=== PATIENT | male | born 1980 | race Caucasian/White ===

== ENCOUNTER 2017-07-11 14:50 | Observation (INO) ==
--- NOTE | 2017-07-11 16:22 | Non-Invasive Vascular Report ---
"Venous Exam Indications: 729.5 Pain in limb. IMPRESSIONS 1. There is no evidence of significant Reflux. 2. No evidence of deep or superficial vein thrombosis involving the right lower extremity History: Risk factors: Current tobacco use. IV DRUG USER Right lower extremity venous duplex evaluation. Doppler flow study including spectral analysis, color and welch scale imaging. Location: Vascular laboratory. Patient status: Outpatient. Incidental findings: A conspicuous lymph is noted incidentally on the right. Tables: Venous flow and imaging: + +-------+ + |Location |Overall|Flow properties | + +-------+ + |Right common femoral |Patent |Normal phasicity; spontaneous; | | | |normal augmentation; compressible| + +-------+ + |Right saphenofemoral junction|Patent |Compressible | + +-------+ + |Right profunda femoral |Patent |Compressible | + +-------+ + |Right femoral |Patent |Normal phasicity; spontaneous; | | | |normal augmentation; compressible| + +-------+ + |Right greater saphenous |Patent |Normal phasicity; spontaneous; | | | |normal augmentation; compressible| + +-------+ + |Right popliteal |Patent |Normal phasicity; spontaneous; | | | |normal augmentation; compressible| + +-------+ + |Right posterior tibial |Patent |Compressible | + +-------+ + |Right peroneal |Patent |Compressible | + +-------+ + |Right gastrocnemius |Patent |Compressible | + +-------+ + |Right soleal |Patent |Compressible | + +-------+ + (Report amended ) Electronically signed by: Joshua Cardenas [id number]"
[2017-07-11 17:05] LABS: Basophils % 0.1 % (0.1-2.0); Eosinophils % 0.1 % (0.1-12.0); Hematocrit 37.3 % (42.0-52.0); Hemoglobin 12.5 g/dL (14.1-18.0); Lymphocytes # 1.3 K/mm3 (0.7-4.5); Lymphocytes % 7.8 K/mm3 (10-50); Mean Corpuscular HGB Conc 33.6 g/dL (31.8-35.4); Mean Corpuscular Hemoglobin 28.9 pg (27.0-31.2); Mean Corpuscular Volume 86.1 fl (80-94); Mean Platelet Volume 7.1 fl (7.4-10.4); Monocytes # 0.8 K/mm3 (0.1-1.0); Monocytes % 4.6 % (1.7-9.3); Neutrophils # 14.9 K/mm3 (1.8-7.8); Neutrophils % 87.4 % (37.0-80.0); Platelet Count 381 K/mm3 (142-424); Red Blood Count 4.33 M/mm3 (4.60-6.20); Red Cell Distribution Width 12.5 % (11.5-17.5)
[2017-07-11 17:13] LABS: Albumin Level 3.2 gm/dL (3.4-5.0); Anion Gap 9.9 mEq/L (5-15); Bilirubin,Total 0.4 mg/dL (0.2-1.0); Calcium 9.3 mg/dL (8.5-10.1); Potassium 3.9 mmoL/L (3.5-5.1)
[2017-07-11 17:14] LABS: Albumin/Globulin Ratio 0.7 (1.1-1.8); Globulin 4.8 gm/dl (1.3-3.2)
--- NOTE | 2017-07-11 17:25 | Emergency Department Note ---
ED Disposition Clinical Impression: Cellulitis of right lower extremity, Leukocytosis, IV drug abuse Disposition: Admitted As Inpatient Condition on Discharge: Fair Time of Disposition: 17:32 - Critical Care Critical Care Time: No Attestation: On 07/11/17, the high probability of a clinically significant, sudden or life threatening deterioration of the following system(s) required my full and direct attention, intervention and personal management. The time I documented below is in addition to time spent performing reported procedures but includes the following listed in this critical care notation. Medical Decision Making - Medical Records Medical records reviewed: Yes: I reviewed the patient's medical records. - [place] Inquiry Pt receiving controlled substance: No Vital Signs: 07/11/17 14:51 Temperature 98.6 F Temperature Source Oral Pulse Rate [Right Brachial] 87 Respiratory Rate 16 Blood Pressure [Right Arm] 117/66 Blood Pressure Mean [Right Arm] 83 Blood Pressure Source [Right Arm] Automatic Cuff Blood Pressure Position [Right Arm] Supine 02 Sat by Pulse Oximetry 97 Oxygen Delivery Method Room Air - Lab Data Lab results reviewed: Yes: I reviewed the patient's lab results. Lab Results 07/11/17 16:50: WBC 17.0 H, RBC 4.33 L, Hgb 12.5 L, Hct 37.3 L, MCV 86.1, MCH 28.9, MCHC 33.6, RDW 12.5, Plt Count 381, MPV 7.1 L, Neut % (Auto) 87.4 H, Lymph % (Auto) 7.8 L, [place] % (Auto) 4.6, Eos % (Auto) 0.1, Baso % (Auto) 0.1, Neut # (Auto) 14.9 H, Lymph # (Auto) 1.3, [place] # (Auto) 0.8, Eos # (Auto) 0.0, Baso # (Auto) 0.0, Total Counted 100, Neutrophils % (Manual) 92 H, Band Neutrophils % 1.0, Lymphocytes % (Manual) 5 L, Monocytes % (Manual) 2, Platelet Estimate Normal 07/11/17 16:50: Sodium 132 L, Potassium 3.9, Chloride 95 L, Carbon Dioxide 31, Anion Gap 9.9, BUN 14, Creatinine 0.89, Estimated Creat Clear 116, Estimated GFR 96, Est GFR ( Amer) 116, Glucose 103, Calcium 9.3, Total Bilirubin 0.4, AST 18, ALT 18, Alkaline Phosphatase 76, Total Protein 8.0, Albumin 3.2 L, Globulin 4.8 H, Albumin/Globulin Ratio 0.7 L 07/11/17 16:50: Lactic Acid 1.3 Result diagrams: 07/11/17 16:50 07/11/17 16:50 Orders (Tests/Meds): ED MEDICATIONS Generic Name Dose Route Start Last Admin Trade Name Freq PRN Reason Stop Dose Admin Miscellaneous 1 each 07/11/17 16:00 07/11/17 17:38 Vancomycin Consult Request * 08/10/17 15:59 1 each [facility] Administration Discontinued Medications Generic Name Dose Route Start Last Admin Trade Name Freq PRN Reason Stop Dose Admin Acetaminophen 325 mg 07/11/17 15:31 07/11/17 17:37 Acetaminophen 325mg Tab PO 07/11/17 15:32 325 mg ONCE ONE Administration Vancomycin HCl 1,500 mg/ 250 mls @ 125 mls/hr 07/11/17 17:16 07/11/17 17:38 Sodium Chloride IV 07/11/17 17:17 125 mls/hr ONCE ONE Administration Protocol Morphine Sulfate 1 mg 07/11/17 17:30 07/11/17 17:42 Morphine 2mg/Ml Syringe IV 07/11/17 17:31 1 mg ONCE ONE Administration Ondansetron HCl 4 mg 07/11/17 17:31 07/11/17 17:42 Zofran 4mg/2ml Vial IV 07/11/17 17:32 4 mg ONCE ONE Administration ORDERS Category Date Time Status Ankle XR - Right 2 Views [XR ankle RT 2V] Stat Exams 07/11/17 15:40 Taken Foot XR right 2 views [XR foot RT 2V] Stat Exams 07/11/17 15:41 Taken Tibia/fibula XR right 2 views [XR tibia fibula RT 2V] Exams 07/11/17 15:41 Taken Stat Blood Culture Stat Micro 07/11/17 15:33 Received - Radiology Data #1 Image(s): Tib/Fib (right), Ankle (right), Foot/Toes (right) Image Reviewed: Yes I reviewed the patient's radiology results, Yes I reviewed the patient's radiology image, Yes I have reviewed radiologist's interpretation Preliminary Findings: Normal/NAD - US Data US Images: Lower Extremity (right ) ED US Reviewed: Yes: I have reviewed the patient's US results Preliminary Findings: Normal/NAD Findings Narrative: no DVT - Physician Consults Physician Consulted: Dr Bean Time: 17:00 Reason -: Admission, Pt condition Comment/Response: Advised of patient's presentation and findings, agreeable with admission for IV antibiotics. - Reevaluation(s) Time: 18:12 Reevaluation #1: medically stable, in mild distress only. General Adult HPI - General Chief complaint: PAIN Stated complaint: right ankly swollen Time Seen by Provider: 07/11/17 15:45 Mode of Arrival: EMS Source of Information: Patient Limitations: No Limitations Description of Symptoms (Recalled from ER Triage Doc. by RN): pain and swelling to right ankle and up calf - History of Present Illness HPI narrative: Patient is a 37-year-old male brought to the emergency room by EMS with right leg redness, pain and swelling for the past 1 week, after using IV heroine. Patient has been also advising that he had subjective fever over the past 2-3 days, at home. He has been taking Tylenol for pain which does no longer control the pain. MD complaint: Swelling of the right lower extremity Onset (ago): week(s) (1) Location: right, lower extremity Radiation: non-radiation Severity: severe Severity scale (1-10): 8 Quality: burning, stabbing Consistency: constant Relieving factors: none Exacerbating factors: movement Associated symptoms: malaise Treatments prior to arrival: other (Tylenol) - Related Data Home Medications Medication Instructions Recorded Confirmed No Known Home Medications [No 07/11/17 07/11/17 Known Home Medications] Allergies Allergy/AdvReac Type Severity Reaction Status Date / Time No Known Allergies Allergy Verified 07/11/17 15:04 [facility] History I have reviewed the patient's past medical history: Yes Medical History: Denies:: Cancer, Diabetes Mellitus Type 1, Diabetes Mellitus Type 2, MRSA Amputation: No Fractures: No - Social History Educational Level: Attended High School Smoking Status: Current every day smoker Tobacco Type: cigarettes Alcohol Intake: never Substance Use Type: methamphetamine Last Used Substance: days (ago) - Psychiatric History Expresses thoughts of harming self/others: None Suicide Plan Description: No Plan ROS Obtained: Yes All systems reviewed & no additional complaints, Yes Systems reviewed as appropriate & no additional complaints - Constitutional Constitutional: Reports body ache, Reports chills, Reports fatigue, Reports fever(s) - Musculoskeletal Musculoskeletal: Reports system reviewed and no additional complaints, except as docu, Reports as per HPI, Reports joint pain (rigth lower extremity) - Integumentary/Breasts Skin/Breast: Reports system reviewed and no additional complaints, except as docu, Reports as per HPI, Reports rash, Reports skin swelling Physical Exam - General General appearance: alert, in distress (moderate) - Head Head exam: atraumatic, normocephalic, normal inspection - ENT ENT exam: Present: other (Poor dentition, multiple cavities) - Neck Neck exam: Present: normal inspection, full ROM, trachea midline. Absent: meningismus, lymphadenopathy - Chest Chest inspection: Present: normal inspection, symmetric chest wall rise. Absent : tenderness - Respiratory Respiratory exam: Present: normal lung sounds bilaterally. Absent: respiratory distress - Cardiovascular Cardiovascular exam: Present: normal rhythm, tachycardia. Absent: JVD - Abdominal Exam Abdominal exam: Present: soft, normal bowel sounds. Absent: distention, tenderness, guarding - Extremities Exam Extremities exam: Absent: calf tenderness - Expanded Lower Extremity Exam Right Lower leg exam: Present: tenderness, swelling Ankle exam: Present: tenderness, swelling, erythema Foot/toe exam: Present: tenderness, swelling, other (erythema) - Back Exam Back exam: Present: normal inspection. Absent: tenderness - Neurological Exam Neurological exam: Present: alert, oriented X3 - Psychiatric Psychiatric exam: Present: normal affect, normal mood - Skin Skin exam: Present: warm, dry, intact, normal color - Lymphatic Lymphatic Findings: no adenopathy
[2017-07-11 17:47] LABS: Lymphocytes % 5 % (10-50); Monocytes % 2 % (2-9); Neutrophils % 92 % (42-76); Total Cells Counted 100
--- NOTE | 2017-07-11 19:43 | Progress Note ---
Internal Medicine - PN: Subj *Date: 07/11/17 *Time: 19:39 Interval history: This 37-year-old white male was admitted from the emergency room with cellulitis of the right foot and ankle. Though the ER report states that the patient is using IV heroin he denies this. He states he has been shooting IV methamphetamine. Apart from marijuana he denies other drug use. The swelling tenderness and redness of the foot and ankle started about 4 days ago. He has had some drainage from the foot and ankle. He has been hospitalized previously for broken jaw. He denies other surgeries. There are no known allergies. He does smoke. Exam Vital signs and Labs for Last 24 Hours: Temp Pulse Resp BP Pulse Ox 98.8 F 85 18 129/64 98 07/11/17 19:10 07/11/17 19:10 07/11/17 19:10 07/11/17 19:10 07/11/17 19:10 I & O for Last 24 hours: Intake & Output 07/09/17 07/10/17 07/11/17 07/12/17 11:59 11:59 11:59 11:59 Weight 154 lb 8 oz - Constitutional no acute distress Comments: Complains of pain in the foot and ankle. - *Routine HEENT Exam Eye: Present: PERRL. Absent: conjunctival icterus ENT: Present: mucous membranes moist Comments: His dentition is terrible with caries and missing teeth. - *Routine Neck Exam Absent: lymphadenopathy - *Routine Respiratory Exam Comments: Bilateral rhonchi and some wheezes. - *Routine Cardiovascular Exam Present: RRR - *Routine Abdominal Exam Present: soft. Absent: tenderness - *Routine Extremities Exam Comments: The left foot appears normal. The right foot and ankle are significantly swollen tense and tender. There are excoriations of the right lateral malleolus in the posterior ankle. I do not see active drainage at the present time. I took the time to wrap the right foot and ankle using Kerlix and then Kang wrap. - *Routine Neurological Exam Present: alert, oriented X3 No focal deficit Assessment and Plan (1) Dental caries Current visit: Yes Status: Chronic Category: Medical Code(s): K02.9 - Dental caries, unspecified (2) Cellulitis of right lower extremity Current visit: Yes Status: Acute Category: Medical Code(s): L03.115 - Cellulitis of right lower limb (3) IV drug abuse Current visit: Yes Status: Acute Category: Social Hx Code(s): F19.10 - Other psychoactive substance abuse, uncomplicated (4) Leukocytosis Current visit: Yes Status: Acute Category: Medical Code(s): D72.829 - Elevated white blood cell count, unspecified - Assessment and plan all Dx Assessment and Plan for all problems:: IV antibiotics and pain relief.
--- NOTE | 2017-07-12 07:36 | Pharmacy Consult Notes ---
[facility] Pharmacy VTE Monitoring - Patient Demographics Admission date: 07/11/17 Report Date: 07/12/17 Time: 07:35 Allergies/Adverse Reactions: Patient Allergies No Known Allergies Allergy (Verified 07/11/17 15:04) Height: 1.78 m Weight: 70.08 kg Patient Problems: Current Active Problems Cellulitis of right lower extremity (Acute) Leukocytosis (Acute) IV drug abuse (Acute) Dental caries (Chronic) - VTE Risk Labs: VTE Related Lab Results Hgb 12.5 g/dL (14.1-18.0) L 07/11/17 16:50 Hct 37.3 % (42.0-52.0) L 07/11/17 16:50 Plt Count 381 K/mm3 (142-424) 07/11/17 16:50 BUN 14 mg/dL (7-18) 07/11/17 16:50 Creatinine 0.89 mg/dL (0.70-1.30) 07/11/17 16:50 Estimated Creat Clear 116 mL/min (0-300) 07/11/17 16:50 Was VTE Risk Assessment Performed: Yes VTE Score: 0 VTE Risk Level: Very Low Risk Clinical Trial Participant: No - Prophylaxis VTE Prophylaxis Ordered?: Yes Types of VTE Prophylaxis: TEDS Knee High
--- NOTE | 2017-07-12 08:34 | History & Physical Report ---
*Admission Date: 07/11/17 *Chief complaint: right lower extremity pain and redness *History of present illness: Mr. Hernandez is a 37-year-old white male was admitted from the emergency room with cellulitis of the right foot and ankle. Though the ER report states that the patient is using IV heroin he denies this. He states he has been shooting IV methamphetamine. Apart from marijuana he denies other drug use. The swelling tenderness and redness of the foot and ankle started about 4 days ago. He has had some drainage from the foot and ankle. He has been hospitalized previously for a broken jaw and did have a hx of a collapsed left lung. He has hepatitis C and currently smokes approximately 2 packs of cigarettes a day. 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 [facility] History Medical History: Denies:: Cancer, Diabetes Mellitus Type 1, Diabetes Mellitus Type 2, MRSA Comment: Hep C, Bipolar, DDD, Bilateral hip bursitis, Herniated discs in the lumbar spine Amputation: No Fractures: No Comment: Jaw, Collapsed left lung - *Social History Educational Level: Attended Grade School Smoking Status: Current every day smoker Tobacco Type: cigarettes # Packs/Day (cigarettes): 2 Alcohol Intake: never Substance Use Type: IV drugs, methamphetamine Last Used Substance: days (ago) Occupational Status: unemployed Housing: house Household Members: significant other - Psychiatric History Expresses thoughts of harming self/others: None Suicide Plan Description: No Plan *Family Hx:: Heart Attack, Hyperlipidemia, Hypertension, Stroke Review of Systems - Constitutional Reports chills, Reports fever(s), Reports weakness - Eyes Denies blurry vision, Denies double vision - ENT Reports nasal congestion, Denies sore throat - *Cardiovascular Denies chest pain, Denies irregular heart rhythm - *Respiratory Denies cough, Denies shortness of breath - *Gastrointestinal Denies abdominal pain, Denies loose stools, Denies nausea, Denies vomiting - *Genitourinary Denies difficulty urinating, Denies painful urination - *Musculoskeletal Reports joint pain (right ankle) - *Neurologic Reports dizziness, Denies headache(s) Meds Home Medications Medication Instructions Recorded Confirmed Type No Known Home Medications [No 07/11/17 07/11/17 History Known Home Medications] Allergies Allergy/AdvReac Type Severity Reaction Status Date / Time No Known Allergies Allergy Verified 07/11/17 15:04 Exam Vital signs and Labs for Last 24 Hours: Temp Pulse Resp BP Pulse Ox 97.9 F 69 18 113/76 98 07/12/17 04:00 07/12/17 04:00 07/12/17 04:00 07/12/17 04:00 07/12/17 04:00 Lab Results 07/11/17 16:50: WBC 17.0 H, RBC 4.33 L, Hgb 12.5 L, Hct 37.3 L, MCV 86.1, MCH 28.9, MCHC 33.6, RDW 12.5, Plt Count 381, MPV 7.1 L, Neut % (Auto) 87.4 H, Lymph % (Auto) 7.8 L, [place] % (Auto) 4.6, Eos % (Auto) 0.1, Baso % (Auto) 0.1, Neut # (Auto) 14.9 H, Lymph # (Auto) 1.3, [place] # (Auto) 0.8, Eos # (Auto) 0.0, Baso # (Auto) 0.0, Total Counted 100, Neutrophils % (Manual) 92 H, Band Neutrophils % 1.0, Lymphocytes % (Manual) 5 L, Monocytes % (Manual) 2, Platelet Estimate Normal 07/11/17 16:50: Sodium 132 L, Potassium 3.9, Chloride 95 L, Carbon Dioxide 31, Anion Gap 9.9, BUN 14, Creatinine 0.89, Estimated Creat Clear 116, Estimated GFR 96, Est GFR ( Amer) 116, Glucose 103, Calcium 9.3, Total Bilirubin 0.4, AST 18, ALT 18, Alkaline Phosphatase 76, Total Protein 8.0, Albumin 3.2 L, Globulin 4.8 H, Albumin/Globulin Ratio 0.7 L 07/11/17 16:50: Lactic Acid 1.3 Microbiology Results 07/11/17 15:33 Blood Blood Culture - Pending 07/11/17 16:50 Blood Blood Culture - Pending I & O for Last 24 hours: Intake & Output 07/09/17 07/10/17 07/11/17 07/12/17 11:59 11:59 11:59 11:59 Intake Total 1327 / 1327 Output Total 2049 Balance -723 / -723 Weight 154 lb 8 oz - Constitutional no acute distress - *Routine HEENT Exam Head: Present: normocephalic, atraumatic Eye: Present: EOMI, PERRL ENT: Present: mucous membranes moist - *Routine Neck Exam Present: supple, full ROM - *Routine Respiratory Exam Present: CTA bilaterally - *Routine Cardiovascular Exam Present: RRR - *Routine Abdominal Exam Present: soft, normoactive bowel sounds. Absent: tenderness - *Routine Extremities Exam Present: edema (RLE) - *Routine Skin Exam Present: erythema (RLE from the mid calf down to the foot, there is still drainage just above the heel, very ttp, hot to touch) - *Routine Neurological Exam Present: alert, oriented X3 H&P: Result - Impressions Ankle xray - Soft tissue swelling otherwise negative X-ray foot - no fx Tib/fib x-ray - Negative right tib-fib Right LE doppler - 1. There is no evidence of significant Reflux. 2. No evidence of deep or superficial vein thrombosis involving the right lower extremity Assessment and Plan (1) Cellulitis of right lower extremity Current visit: Yes Status: Acute Category: Medical Code(s): L03.115 - Cellulitis of right lower limb (2) IV drug abuse Current visit: Yes Status: Acute Category: Social Hx Code(s): F19.10 - Other psychoactive substance abuse, uncomplicated (3) Leukocytosis Current visit: Yes Status: Acute Category: Medical Code(s): D72.829 - Elevated white blood cell count, unspecified (4) Dental caries Current visit: Yes Status: Chronic Category: Medical Code(s): K02.9 - Dental caries, unspecified (5) Hepatitis C Current visit: Yes Status: Acute Category: Medical Code(s): B19.20 - Unspecified viral hepatitis C without hepatic coma (6) Bipolar disorder Current visit: Yes Status: Acute Category: Medical Code(s): F31.9 - Bipolar disorder, unspecified - Assessment and plan all Dx Assessment and Plan for all problems:: Will continue IV abx and pain control. Will await blood cultures. Will get labs today.
--- NOTE | 2017-07-12 08:44 | Pharmacy Consult Notes ---
- Pharmacy Consult Date: 07/12/17 Time: 08:43 Referring provider: DR. RIVERA Reason for Consult:: VANCOMYCIN DOSING Allergies and ADEs:: Allergies Allergy/AdvReac Type Severity Reaction Status Date / Time No Known Allergies Allergy Verified 07/11/17 15:04 Home Medications:: Home Medications Medication Instructions Recorded Confirmed Type No Known Home Medications [No 07/11/17 07/11/17 History Known Home Medications] Height: 1.78 m Weight: 70.08 kg Laboratory Results:: NONE Medical History: Denies:: Cancer, Diabetes Mellitus Type 1, Diabetes Mellitus Type 2, MRSA Assessment and Plan (1) Dental caries Current visit: Yes Status: Chronic Category: Medical Code(s): K02.9 - Dental caries, unspecified (2) Cellulitis of right lower extremity Current visit: Yes Status: Acute Category: Medical Code(s): L03.115 - Cellulitis of right lower limb (3) IV drug abuse Current visit: Yes Status: Acute Category: Social Hx Code(s): F19.10 - Other psychoactive substance abuse, uncomplicated (4) Leukocytosis Current visit: Yes Status: Acute Category: Medical Code(s): D72.829 - Elevated white blood cell count, unspecified - Assessment and plan all Dx Assessment and Plan for all problems:: BASED ON PATIENT'S FACTORS, RECOMMEND CONTINUING WITH VANCOMYCIN 1500 MG Q12H AT THIS TIME. PHARMACY WILL FOLLOW DAILY AND ADJUST APPROPRIATE. MARK FLOREZ, PHARMD
[2017-07-12 09:03] LABS: Basophils % 0.2 % (0.1-2.0); Eosinophils # 0.2 K/mm3 (0.0-0.4); Hematocrit 35.1 % (42.0-52.0); Hemoglobin 11.5 g/dL (14.1-18.0); Lymphocytes # 1.4 K/mm3 (0.7-4.5); Lymphocytes % 13.5 K/mm3 (10-50); Mean Corpuscular HGB Conc 32.8 g/dL (31.8-35.4); Mean Corpuscular Hemoglobin 28.7 pg (27.0-31.2); Mean Corpuscular Volume 87.6 fl (80-94); Mean Platelet Volume 7.4 fl (7.4-10.4); Monocytes # 0.6 K/mm3 (0.1-1.0); Monocytes % 5.4 % (1.7-9.3); Neutrophils # 8.1 K/mm3 (1.8-7.8); Platelet Count 276 K/mm3 (142-424); Red Blood Count 4.01 M/mm3 (4.60-6.20); Red Cell Distribution Width 12.3 % (11.5-17.5); White Blood Count 10.2 K/mm3 (4.8-10.8)
[2017-07-12 09:56] LABS: Anion Gap 10.4 mEq/L (5-15); Potassium 3.4 mmoL/L (3.5-5.1)
--- NOTE | 2017-07-13 14:23 | Discharge Summary ---
General - General Admission date: 07/11/17 Discharge date: 07/12/17 HPI HPI: Mr. Hernandez is a 37-year-old white male was admitted from the emergency room with cellulitis of the right foot and ankle. Though the ER report states that the patient is using IV heroin he denies this. He states he has been shooting IV methamphetamine. Apart from marijuana he denies other drug use. The swelling tenderness and redness of the foot and ankle started about 4 days ago. He has had some drainage from the foot and ankle. He has been hospitalized previously for a broken jaw and did have a hx of a collapsed left lung. He has hepatitis C and currently smokes approximately 2 packs of cigarettes a day. 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 Hospital Course Hospital Course: He had x-rays showing soft tissue swelling. There was no evidence of a DVT on doppler. The patient was admitted and started on IV vancomycin and clindamycin. He was also started on pain medication. The patient was unhappy about having and IV and about having blood drawn. He wanted to leave the floor to smoke. He was informed [facility] was a nonsmoking facility and was offered a nicotine patch. He refused. He signed a paper to leave the floor and did return. He then requested a paper to sign out AMA so he could go check on his girlfriend. He stated he wanted to find her and sign them both in to another facility. He signed to paperwork and left AMA. Objective Vital signs: Temp Pulse Resp BP Pulse Ox 97.7 F 89 18 104/55 90 L 07/12/17 16:00 07/12/17 16:00 07/12/17 16:00 07/12/17 16:07/12/17 16:00 Narrative: - Constitutional no acute distress - *Routine HEENT Exam Head: Present: normocephalic, atraumatic Eye: Present: EOMI, PERRL ENT: Present: mucous membranes moist - *Routine Neck Exam Present: supple, full ROM - *Routine Respiratory Exam Present: CTA bilaterally - *Routine Cardiovascular Exam Present: RRR - *Routine Abdominal Exam Present: soft, normoactive bowel sounds. Absent: tenderness - *Routine Extremities Exam Present: edema (RLE) - *Routine Skin Exam Present: erythema (RLE from the mid calf down to the foot, there is still drainage just above the heel, very ttp, hot to touch) - *Routine Neurological Exam Present: alert, oriented X3 DS: Diagnosis - Discharge Diagnosis (1) Cellulitis of right lower extremity Status: Acute (2) IV drug abuse Status: Acute (3) Leukocytosis Status: Acute (4) Dental caries Status: Chronic (5) Hepatitis C Status: Acute (6) Bipolar disorder Status: Acute Discharge Plan - Patient Discharge Instructions - Follow up Plan Follow up with: Cherelle Bean MD [Primary Care Provider] - Disposition: Left Against Medical Advice Home Medications: Home Medications Medication Instructions Recorded Confirmed Type No Known Home Medications [No 07/11/17 07/11/17 History Known Home Medications] Prescriptions/Medication Reconciliation: No Action No Known Home Medications [No Known Home Medications]
== END 2017-07-12 17:55 | disposition left against medical advice (07) ==
LOC: 2ND 14:50 → ER 14:50 → 2ND 17:42 → OBSVTOIN 17:46 → INTOOBSV 17:46 → 2ND 18:48
PROVIDERS: ADMIT Family Medicine; ATTEND Family Medicine

== ENCOUNTER 2017-07-15 17:35 | Observation (INO) ==
[2017-07-15 18:27] LABS: Basophils # 0.1 K/mm3 (0-0.2); Basophils % 0.7 % (0.1-2.0); Eosinophils # 0.2 K/mm3 (0.0-0.4); Eosinophils % 1.5 % (0.1-12.0); Hematocrit 36.9 % (42.0-52.0); Hemoglobin 12.3 g/dL (14.1-18.0); Lymphocytes # 2.1 K/mm3 (0.7-4.5); Lymphocytes % 21.4 K/mm3 (10-50); Mean Corpuscular HGB Conc 33.4 g/dL (31.8-35.4); Mean Corpuscular Hemoglobin 28.8 pg (27.0-31.2); Mean Corpuscular Volume 86.4 fl (80-94); Mean Platelet Volume 6.7 fl (7.4-10.4); Monocytes # 0.5 K/mm3 (0.1-1.0); Monocytes % 4.9 % (1.7-9.3); Neutrophils # 6.9 K/mm3 (1.8-7.8); Neutrophils % 71.5 % (37.0-80.0); Platelet Count 609 K/mm3 (142-424); Red Blood Count 4.28 M/mm3 (4.60-6.20); Red Cell Distribution Width 12.2 % (11.5-17.5); White Blood Count 9.6 K/mm3 (4.8-10.8)
[2017-07-15 18:35] LABS: Albumin Level 3.5 gm/dL (3.4-5.0); Albumin/Globulin Ratio 0.7 (1.1-1.8); Anion Gap 13.3 mEq/L (5-15); Bilirubin,Total 0.2 mg/dL (0.2-1.0); Calcium 9.7 mg/dL (8.5-10.1); Globulin 4.9 gm/dl (1.3-3.2); Potassium 3.3 mmoL/L (3.5-5.1); Total Protein,Serum 8.4 gm/dL (6.4-8.2)
--- NOTE | 2017-07-15 19:14 | Emergency Department Note ---
ED Disposition Clinical Impression: Abscess of right leg, Cellulitis of right lower extremity, IV drug abuse Disposition: Still a Patient Condition on Discharge: Serious Time of Disposition: 19:11 - Critical Care Critical Care Time: No Attestation: On 07/15/17, the high probability of a clinically significant, sudden or life threatening deterioration of the following system(s) required my full and direct attention, intervention and personal management. The time I documented below is in addition to time spent performing reported procedures but includes the following listed in this critical care notation. Medical Decision Making - Medical Records Medical records reviewed: Yes: I reviewed the patient's medical records. - [place] Inquiry Pt receiving controlled substance: No Vital Signs: 07/15/17 17:51 Temperature 98.1 F Temperature Source Temporal Artery Scan Pulse Rate [Right Brachial] 118 H Respiratory Rate 18 Blood Pressure [Right Arm] 158/100 Blood Pressure Mean [Right Arm] 119 Blood Pressure Source [Right Arm] Automatic Cuff Blood Pressure Position [Right Arm] Sitting 02 Sat by Pulse Oximetry 96 Oxygen Delivery Method Room Air - Lab Data Lab results reviewed: Yes: I reviewed the patient's lab results. Lab Results 07/15/17 18:05: WBC 9.6, RBC 4.28 L, Hgb 12.3 L, Hct 36.9 L, MCV 86.4, MCH 28.8 , MCHC 33.4, RDW 12.2, Plt Count 609 H D, MPV 6.7 L, Neut % (Auto) 71.5, Lymph % (Auto) 21.4, Ramsey % (Auto) 4.9, Eos % (Auto) 1.5, Baso % (Auto) 0.7, Neut # ( Auto) 6.9, Lymph # (Auto) 2.1, Ramsey # (Auto) 0.5, Eos # (Auto) 0.2, Baso # (Auto ) 0.1 07/15/17 18:05: Sodium 139, Potassium 3.3 L, Chloride 97 L, Carbon Dioxide 32, Anion Gap 13.3, BUN 13, Creatinine 1.07, Estimated Creat Clear 78, Estimated GFR 77, Est GFR ( Amer) 94, Glucose 93, Calcium 9.7, Total Bilirubin 0.2 , AST 24, ALT 25, Alkaline Phosphatase 79, Total Protein 8.4 H, Albumin 3.5, Globulin 4.9 H, Albumin/Globulin Ratio 0.7 L 07/15/17 18:05: Lactic Acid 1.4 Result diagrams: 07/15/17 18:05 07/15/17 18:05 Orders (Tests/Meds): ED MEDICATIONS Generic Name Dose Route Start Last Admin Trade Name Freq PRN Reason Stop Dose Admin Miscellaneous 1 each 07/15/17 18:00 07/15/17 19:02 Vancomycin Consult Request * 08/14/17 17:59 1 each [facility]ULT [facility] Administration Discontinued Medications Generic Name Dose Route Start Last Admin Trade Name Freq PRN Reason Stop Dose Admin Sodium Chloride 1,000 mls @ 999 mls/hr 07/15/17 18:15 07/15/17 18:15 Sod Chlor 0.9% 1000ml Bag IV 07/15/17 19:15 999 mls/hr .Q1H1M [facility] Administration Vancomycin HCl 1,250 mg/ 250 mls @ 125 mls/hr 07/15/17 19:21 07/15/17 19:24 Sodium Chloride IV 07/15/17 19:22 125 mls/hr ONCE ONE Administration Protocol Lorazepam 1 mg 07/15/17 19:14 07/15/17 19:19 Ativan 2mg/Ml Vial IV 07/15/17 19:15 1 mg ONCE ONE Administration Morphine Sulfate 4 mg 07/15/17 19:20 07/15/17 19:23 Morphine 4mg/Ml Syringe IV 07/15/17 19:21 4 mg ONCE ONE Administration ORDERS Category Date Time Status Blood Culture Stat Micro 07/15/17 19:12 Received - Physician Consults Physician Consulted: DR Hdez Time: 18:38 Reason -: Admission, Pt condition, Surgical Eval/Care Comment/Response: Case discussed with Dr. Hdez, advise of presentation and findings, previous admission at our facility as well as in [place], as well as likelihood of possible osteomyelitis, given the patient's noncompliance. 1900- Dr Hdez in the ER evaluating the patient. Additional Consult: Dr Matias Time: 18:40 Reason -: Admission, Pt condition Comment/Response: case d/w Dr Matias, agreeable with admission, requested vancomycin pewr pharmacy order, as well Clindamycin 900 mg ivpb q8 hrs. Skin/Abscess/FB HPI - General Chief complaint: Skin/Abscess/Foreign Body Stated complaint: right leg infected Time Seen by Provider: 07/15/17 17:59 Mode of Arrival: Ambulatory Source of Information: Patient, Spouse () Limitations: No Limitations Description of Symptoms (Recalled from ER Triage Doc. by RN): right lower extremity abscess and cellulitis from injecting meth into leg per his report on last saturday; pt states he has self-expressed copious amounts of yellow-welch fluid with a foul odor - History of Present Illness HPI narrative: Mr. Hernandez is a 38-year-old IV drug abuser (heroin/methamphetamine) presented to emergency room with right foot, right ankle, right leg redness, tenderness, swelling for the past 10 days. Patient was initially admitted at this facility with similar presentations, but much milder, for IV antibiotics, to Dr. Bean' s service. Eventually patient signed out of the hospital AGAINST MEDICAL ADVICE , but he went to [place], [place] where he was admitted at [facility], for same complaints. The advised patient was told by the surgeon that he needs to be taken to the operating room for surgical evacuation of his abscess, and amputation was a possibility. The patient left the medical facility prior to the surgeon having an opportunity to take the patient to the operating room, AGAINST MEDICAL ADVICE, for the second time. finally convinced patient to return to the closest medical facility in order to resume his IV antibiotics, which is the reason he is here today. He appears to be aware of the risks of him leaving again AGAINST MEDICAL ADVICE and he would like to stay in the hospital for the full length of his treatment. complaint: rash Onset (ago): day(s) (10) Tetanus up to date: yes Location: RLE, R foot Severity: severe Severity scale (1-10): 9 Quality: aching, dull, constant Consistency: constant Relieving factors: none Exacerbating factors: palpation, movement Context: IVDA Associated symptoms: chills Treatments prior to arrival: none - Related Data Home Medications Medication Instructions Recorded Confirmed No Known Home Medications [No 07/11/17 07/15/17 Known Home Medications] Allergies Allergy/AdvReac Type Severity Reaction Status Date / Time No Known Allergies Allergy Verified 07/11/17 15:04 [facility] History I have reviewed the patient's past medical history: Yes Medical History: Denies:: Cancer, Diabetes Mellitus Type 1, Diabetes Mellitus Type 2, MRSA Comment: Hep C, Bipolar, DDD, Bilateral hip bursitis, Herniated discs in the lumbar spine Amputation: No Fractures: No Comment: Jaw, Collapsed left lung - Social History Educational Level: Completed High School Smoking Status: Current every day smoker Tobacco Type: cigarettes # Packs/Day (cigarettes): 20 Alcohol Intake: current Alcohol Intake Frequency:: 0-2 drinks per day Substance Use Type: methamphetamine Last Used Substance: days (ago) Occupational Status: unemployed Housing: house Household Members: significant other - Psychiatric History Expresses thoughts of harming self/others: None Suicide Plan Description: No Plan Family Hx:: Heart Attack, Hyperlipidemia, Hypertension, Stroke ROS Obtained: Yes All systems reviewed & no additional complaints, Yes Systems reviewed as appropriate & no additional complaints - Musculoskeletal Musculoskeletal: Reports system reviewed and no additional complaints, except as docu, Reports as per HPI, Reports other (right leg pain, swelling) - Integumentary/Breasts Skin/Breast: Reports system reviewed and no additional complaints, except as docu, Reports as per HPI, Reports rash (redness (cellulitis)), Reports other ( right leg psoterior aspect soft tissue swelling 7x7, fluctuant) Physical Exam - General General appearance: alert, in distress (moderate) - Head Head exam: atraumatic, normocephalic, normal inspection - Neck Neck exam: Present: normal inspection, full ROM, trachea midline. Absent: meningismus, lymphadenopathy - Chest Chest inspection: Present: normal inspection, symmetric chest wall rise. Absent : tenderness - Respiratory Respiratory exam: Present: normal lung sounds bilaterally. Absent: respiratory distress - Cardiovascular Cardiovascular exam: Present: regular rate, normal rhythm. Absent: JVD - Abdominal Exam Abdominal exam: Present: soft, normal bowel sounds. Absent: distention, tenderness, guarding - Expanded Lower Extremity Exam Right Lower leg exam: Present: tenderness, swelling, deformity, erythema, other ( posterior right leg 7x7 soft tissue swelling with central area of fluctuance, streaks of lumphangitis going towards proximal leg/groin) Foot/toe exam: Present: tenderness, swelling, deformity, other (soft tissue swelling) - Back Exam Back exam: Present: normal inspection. Absent: tenderness - Neurological Exam Neurological exam: Present: alert, oriented X3 - Psychiatric Psychiatric exam: Present: normal affect, normal mood - Skin Skin exam: Present: warm, dry, intact, normal color - Lymphatic Lymphatic Findings: no adenopathy
--- NOTE | 2017-07-15 19:24 | Consult Report ---
*Admission Date: 07/15/17 *Chief complaint: Swollen red lower extremity *History of present illness: Patient is a 37-year-old white male with hepatitis C and admitted intravenous methamphetamine abuse. He admits to injecting into his lower extremities reportedly. About 8 days ago he had developed a red swollen area on the right lower extremity. He had apparently been seen at an outside facility at some point and had seen a surgeon who was quite concerned and felt that the patient had limb threatening soft tissue infection. He had reportedly left AMA from that institution. Patient had recently presented to the emergency department at this institution on 07/11/17. He was started on intravenous antibiotics. Once again, he left AMA. He presented back to the emergency department here at [facility] this evening. He states that the area needs to be drained. He states that he had previously been told that the redness had advanced all the way to his groin area. Review of Systems - Review of Systems Review of systems:: pertinent systems reviewed and negative unless documented below [facility] History Medical History: Reports:: Hepatitis Denies:: Cancer, Deep Vein Thrombosis, Diabetes Mellitus Type 1, Diabetes Mellitus Type 2, MRSA Amputation: No Fractures: No - *Social History Educational Level: Completed High School Smoking Status: Current every day smoker Tobacco Type: cigarettes # Packs/Day (cigarettes): 20 Alcohol Intake: current Alcohol Intake Frequency:: 0-2 drinks per day Substance Use Type: methamphetamine Last Used Substance: days (ago) Occupational Status: unemployed Housing: house Household Members: significant other - Psychiatric History Expresses thoughts of harming self/others: None Suicide Plan Description: No Plan *Family Hx:: Heart Attack, Hyperlipidemia, Hypertension, Stroke Meds Home Medications Medication Instructions Recorded Confirmed Type No Known Home Medications [No 07/11/17 07/15/17 History Known Home Medications] Allergies Allergy/AdvReac Type Severity Reaction Status Date / Time No Known Allergies Allergy Verified 07/11/17 15:04 Exam Vital signs and Labs for Last 24 Hours: Temp Pulse Resp BP Pulse Ox 98.1 F 118 H 18 158/100 96 07/15/17 17:51 07/15/17 17:51 07/15/17 17:51 07/15/17 17:51 07/15/17 17:51 Laboratory Results - last 24 hr 07/15/17 18:05: WBC 9.6, RBC 4.28 L, Hgb 12.3 L, Hct 36.9 L, MCV 86.4, MCH 28.8 , MCHC 33.4, RDW 12.2, Plt Count 609 H D, MPV 6.7 L, Neut % (Auto) 71.5, Lymph % (Auto) 21.4, [place] % (Auto) 4.9, Eos % (Auto) 1.5, Baso % (Auto) 0.7, Neut # ( Auto) 6.9, Lymph # (Auto) 2.1, [place] # (Auto) 0.5, Eos # (Auto) 0.2, Baso # (Auto ) 0.1 07/15/17 18:05: Sodium 139, Potassium 3.3 L, Chloride 97 L, Carbon Dioxide 32, Anion Gap 13.3, BUN 13, Creatinine 1.07, Estimated Creat Clear 78, Estimated GFR 77, Est GFR ( Amer) 94, Glucose 93, Calcium 9.7, Total Bilirubin 0.2 , AST 24, ALT 25, Alkaline Phosphatase 79, Total Protein 8.4 H, Albumin 3.5, Globulin 4.9 H, Albumin/Globulin Ratio 0.7 L 07/15/17 18:05: Lactic Acid 1.4 I & O for Last 24 hours: Intake & Output 07/13/17 07/14/17 07/15/17 07/16/17 11:59 11:59 11:59 11:59 Weight 130 lb - Constitutional no acute distress Comments: Patient is in no acute distress. He is quite animated and active. - *Routine Extremities Exam Comments: Examination patient has edema of the right lower extremity. He has cellulitis from the foot to the upper calf area. There is a large fluctuant abscess laterally with some excoriation of the skin with minor skin necrosis. There is minimal draining pus. He has normal pedal pulses. Brief neurovascular exam of the lower extremity appears normal. The area is nontender to him. There is no crepitance. Results - Labs 07/15/17 18:05 04 18:05 Laboratory Results - last 24 hr 07/15/17 18:05: WBC 9.6, RBC 4.28 L, Hgb 12.3 L, Hct 36.9 L, MCV 86.4, MCH 28.8 , MCHC 33.4, RDW 12.2, Plt Count 609 H D, MPV 6.7 L, Neut % (Auto) 71.5, Lymph % (Auto) 21.4, [place] % (Auto) 4.9, Eos % (Auto) 1.5, Baso % (Auto) 0.7, Neut # ( Auto) 6.9, Lymph # (Auto) 2.1, [place] # (Auto) 0.5, Eos # (Auto) 0.2, Baso # (Auto ) 0.1 07/15/17 18:05: Sodium 139, Potassium 3.3 L, Chloride 97 L, Carbon Dioxide 32, Anion Gap 13.3, BUN 13, Creatinine 1.07, Estimated Creat Clear 78, Estimated GFR 77, Est GFR ( Amer) 94, Glucose 93, Calcium 9.7, Total Bilirubin 0.2 , AST 24, ALT 25, Alkaline Phosphatase 79, Total Protein 8.4 H, Albumin 3.5, Globulin 4.9 H, Albumin/Globulin Ratio 0.7 L 07/15/17 18:05: Lactic Acid 1.4 Assessment and Plan - Assessment and plan all Dx Assessment and Plan for all problems:: He has soft tissue infection with rather large abscess of the right ankle area. I did briefly discuss the case with orthopedic surgery as well. At this time plan will be for incision and drainage tomorrow morning with orthopedic intraoperative consult if necessary.
--- NOTE | 2017-07-16 07:43 | History & Physical Report ---
*Admission Date: 07/15/17 *Chief complaint: Right lower leg abscess *History of present illness: Patient is a 37-year-old white male with hepatitis C and admitted intravenous methamphetamine abuse. He admits to injecting into his lower extremities reportedly. About 8 days ago he had developed a red swollen area on the right lower extremity. He had apparently been seen at an outside facility at some point and had seen a surgeon who was quite concerned and felt that the patient had limb threatening soft tissue infection. He had reportedly left AMA from that institution. Patient had recently presented to the emergency department at this institution on 07/11/17. He was started on intravenous antibiotics. Once again, he left AMA. He presented back to the emergency department here at [facility] this evening. He states that the area needs to be drained. He states that he had previously been told that the redness had advanced all the way to his groin area. History as above per surgery. Appreciate consultation. Overnight patient has exhibited significant paranoid and anxious behaviors. He has asked that the bed be moved around in the room, all blinking lights taped over, and is worried that the FBI is monitoring his activities. [facility] History Medical History: Reports:: Hepatitis Denies:: Cancer, Deep Vein Thrombosis, Diabetes Mellitus Type 1, Diabetes Mellitus Type 2, MRSA Amputation: No Fractures: No - *Social History Educational Level: Completed High School Smoking Status: Current every day smoker Tobacco Type: cigarettes # Packs/Day (cigarettes): 20 Alcohol Intake: never Alcohol Intake Frequency:: 0-2 drinks per day Substance Use Type: methamphetamine Last Used Substance: days (ago) Occupational Status: unemployed Housing: house Household Members: significant other - Psychiatric History Expresses thoughts of harming self/others: None Suicide Plan Description: No Plan *Family Hx:: Heart Attack, Hyperlipidemia, Hypertension, Stroke Review of Systems - Review of Systems Review of systems:: unable to obtain, other, pertinent systems reviewed and negative unless documented below Patient is sleeping. He is sedated after some Ativan last night. Unable to give much of a history or review of systems. Interestingly he and his girlfriend are both in the hospital bed. Meds Home Medications Medication Instructions Recorded Confirmed Type No Known Home Medications [No 07/11/17 07/15/17 History Known Home Medications] Allergies Allergy/AdvReac Type Severity Reaction Status Date / Time No Known Allergies Allergy Verified 07/11/17 15:04 Exam Vital signs and Labs for Last 24 Hours: Temp Pulse Resp BP Pulse Ox 98.8 F 100 H 22 136/77 96 07/15/17 23:30 07/15/17 23:30 07/15/17 23:30 07/15/17 23:30 07/15/17 23:30 I & O for Last 24 hours: Intake & Output 07/13/17 07/14/17 07/15/17 07/16/17 11:59 11:59 11:59 11:59 Intake Total 218 / 218 Balance 218 / 218 Weight 151 lb Narrative: Patient's cardiopulmonary status appears normal, breathing easily. Moving his arms and legs well. Right lower extremity exam as per surgery. Assessment and Plan (1) Abscess of right leg Current visit: Yes Status: Acute Category: Medical Code(s): L02.415 - Cutaneous abscess of right lower limb Plan for surgical care. Continue anti-anxiety medicines as noted. (2) Cellulitis of right lower extremity Current visit: Yes Status: Acute Category: Medical Code(s): L03.115 - Cellulitis of right lower limb (3) IV drug abuse Current visit: Yes Status: Acute Category: Social Hx Code(s): F19.10 - Other psychoactive substance abuse, uncomplicated (4) Bipolar disorder Current visit: No Status: Acute Category: Medical Code(s): F31.9 - Bipolar disorder, unspecified (5) Hepatitis C Current visit: No Status: Acute Category: Medical Code(s): B19.20 - Unspecified viral hepatitis C without hepatic coma (6) Leukocytosis Current visit: No Status: Acute Category: Medical Code(s): D72.829 - Elevated white blood cell count, unspecified (7) Dental caries Current visit: No Status: Chronic Category: Medical Code(s): K02.9 - Dental caries, unspecified
--- NOTE | 2017-07-16 09:34 | Pharmacy Consult Notes ---
[facility] Pharmacy VTE Monitoring - Patient Demographics Admission date: 07/15/17 Report Date: 07/16/17 Time: 09:33 Allergies/Adverse Reactions: Patient Allergies No Known Allergies Allergy (Verified 07/11/17 15:04) Height: 1.78 m Weight: 68.492 kg Patient Problems: Current Active Problems Cellulitis of right lower extremity (Acute) IV drug abuse (Acute) Abscess of right leg (Acute) - VTE Risk Labs: VTE Related Lab Results Hgb 12.3 g/dL (14.1-18.0) L 07/15/17 18:05 Hct 36.9 % (42.0-52.0) L 07/15/17 18:05 Plt Count 609 K/mm3 (142-424) H D 07/15/17 18:05 BUN 13 mg/dL (7-18) 07/15/17 18:05 Creatinine 1.07 mg/dL (0.70-1.30) 07/15/17 18:05 Estimated Creat Clear 78 mL/min (0-300) 07/15/17 18:05 Was VTE Risk Assessment Performed: No VTE Score: 0 - Prophylaxis VTE Prophylaxis Ordered?: Yes Types of VTE Prophylaxis: TEDS Knee High Location of Applied Device: Bilateral Lower Extremeties - VTE Diagnosis Confirmed Treatment or plan recommended: Continue Current Treatment
--- NOTE | 2017-07-16 12:07 | Progress Note ---
[facility] Anesthesia Checklist - Patient Identification Patient Identification: Arm Band - Structural Data Admitted From: Home Consent for Planned Operative Procedure(s) Verified: Yes Verified Documents: Surgical Consent - NPO Status Verified Time NPO: 00:00 - Additional verifications Anesthesia Reactions: No - Airway Assessment C-Spine Mobility Assessed: Yes TMJ Mobility Assessed: Yes Dentition: Poor Dentition (Broken teeth, decayed teeth) - Neurological Assessment Level of Consciousness: Awake Hx Seizures: No Numbness or tingling in extremities: No - Anesthesia Plan Anesthesia Risk discussed: Yes Anesthesia Plan: Verified ASA Class: III Anesthesia Type: General [facility] Anesthesia HX I have reviewed the patient's past medical history: Yes Medical History: Reports:: Hepatitis (Hep C) Denies:: Cancer, Deep Vein Thrombosis, Diabetes Mellitus Type 1, Diabetes Mellitus Type 2, MRSA Comment: Paranoid, Schizoprenia, Methamphetamine use, smokes tobacco Amputation: No Fractures: No *Family Hx:: Heart Attack, Hyperlipidemia, Hypertension, Stroke
--- NOTE | 2017-07-16 13:22 | Operative Note ---
Date of procedure: 07/16/17 Pre-op Diagnosis:: Right lower extremity soft tissue infection with abscess Post-op Diagnosis:: Same Procedure performed:: Incision and drainage of right lower extremity abscess. Surgeon:: Ronnie Hdez MD Anesthesia: LMA Estimated blood loss (mL): 25 Clinical Note:: Patient is a 37-year-old hepatitis C white male was admitted IV methamphetamine abuse. About 9 days ago he had developed infection of the right lower extremity at allegedly injection site. This was lateral and posterior to the lateral malleolus. About 5 days ago he had presented to the emergency department here at [facility] and was admitted only to leave against medical advice. He apparently had presented to another emergency department in [facility] and was seen by a surgeon who felt that he had limb threatening soft tissue infection. Patient left AGAINST MEDICAL ADVICE. He presented back to the emergency department here yesterday evening. He was admitted and surgical consultation was obtained. Plan was made for incision and drainage of abscess. Please note that the patient did have some improvement overnight with intravenous antibiotics. Operative findings:: Patient had significant soft tissue infection with abscess and fluid pocket. There was necrotic underlying tissues Operative note:: Consent was obtained. Patient was taken the operating room. He was positioned in a supine position. General anesthesia was induced via LMA. The area was prepped and draped in the standard surgical fashion. He had a large amount of thickened callus and necrotic superficial tissues. This was debrided mainly using Ray-Robert. There was a moderately large fluctuant right lateral posterior location. There is some necrosis of the tissues superficially and limited incision was made. There was a large amount of fluid which exuded from the wound. This was not consistent with thick pus. Wound was probed and there was undermining of the cavity towards the ankle area. Intraoperative orthopedic surgery consultation was obtained for additional recommendations. Plan was to open the abscess cavity inferiorly where the undermining pocket was located. Incision was performed. Overall length of the incision is approximately 5 cm. The wound was irrigated and necrotic debris and material was evacuated. Wound was then packed and with moistened saline gauze. It was covered with clean dry sterile dressing. Condition: stable Disposition: PACU Specimens:: Cultures Complications:: None
--- NOTE | 2017-07-16 13:26 | Progress Note ---
[facility] Anesthesia Record Part I Intake, IV Amount: 600 Estimated blood loss (mL): 50 Urine output (mL): 0 Blood Products used (#): none Blood Pressure: 125/75 SaO2: 97 Pulse Rate: 69 Respiratory Rate: 13 Temperature: 97.0 F Patient is:: Drowsy Stable to PACU at:: 13:20
--- NOTE | 2017-07-16 13:27 | Progress Note ---
[facility] Anesthesia Record Part II Discharge Time: 13:50 Destination: Medical Surgical Department PACU nurse assessment reviewed?: Yes Patient Condition:: Good Anesthesia Complications:: None
--- NOTE | 2017-07-16 13:33 | Pharmacy Consult Notes ---
- Pharmacy Consult Date: 07/16/17 Time: 13:29 Referring provider: DR. MARROQUIN Reason for Consult:: VANCOMYCIN DOSING FOR CELLULITIS Allergies and ADEs:: Allergies Allergy/AdvReac Type Severity Reaction Status Date / Time No Known Allergies Allergy Verified 07/11/17 15:04 Home Medications:: Home Medications Medication Instructions Recorded Confirmed Type No Known Home Medications [No 07/11/17 07/15/17 History Known Home Medications] Height: 1.78 m Weight: 68.492 kg Laboratory Results:: SRCR 1.07 Medical History: Reports:: Hepatitis (Hep C) Denies:: Cancer, Deep Vein Thrombosis, Diabetes Mellitus Type 1, Diabetes Mellitus Type 2, MRSA, Seizures Assessment and Plan (1) Abscess of right leg Current visit: Yes Status: Acute Category: Medical Code(s): L02.415 - Cutaneous abscess of right lower limb (2) Cellulitis of right lower extremity Current visit: Yes Status: Acute Category: Medical Code(s): L03.115 - Cellulitis of right lower limb (3) IV drug abuse Current visit: Yes Status: Acute Category: Social Hx Code(s): F19.10 - Other psychoactive substance abuse, uncomplicated (4) Bipolar disorder Current visit: No Status: Acute Category: Medical Code(s): F31.9 - Bipolar disorder, unspecified (5) Hepatitis C Current visit: No Status: Acute Category: Medical Code(s): B19.20 - Unspecified viral hepatitis C without hepatic coma (6) Leukocytosis Current visit: No Status: Acute Category: Medical Code(s): D72.829 - Elevated white blood cell count, unspecified (7) Dental caries Current visit: No Status: Chronic Category: Medical Code(s): K02.9 - Dental caries, unspecified - Assessment and plan all Dx Assessment and Plan for all problems:: BASED ON PATIENT'S FACTORS, RECOMMEND PATIENT CONTINUE WITH VANCOMYCIN 1250 MG Q12H. PHARMACY WILL FOLLOW DAILY AND ADJUST APPROPRIATE. MARK FLOREZ, NARCISAD
[2017-07-16 21:01] VITALS: BP 144/81
--- NOTE | 2017-10-10 09:18 | Discharge Summary ---
General - General Admission date:: 07/15/17 Discharge date: 07/17/17 HPI HPI: Patient is a 37-year-old white male with hepatitis C and admitted intravenous methamphetamine abuse. He admits to injecting into his lower extremities reportedly. About 8 days ago he had developed a red swollen area on the right lower extremity. He had apparently been seen at an outside facility at some point and had seen a surgeon who was quite concerned and felt that the patient had limb threatening soft tissue infection. He had reportedly left AMA from that institution. Patient had recently presented to the emergency department at this institution on 07/11/17. He was started on intravenous antibiotics. Once again, he left AMA. He presented back to the emergency department here at [facility] this evening. He states that the area needs to be drained. He states that he had previously been told that the redness had advanced all the way to his groin area. History as above per surgery. Appreciate consultation. Overnight patient has exhibited significant paranoid and anxious behaviors. He has asked that the bed be moved around in the room, all blinking lights taped over, and is worried that the FBI is monitoring his activities. Hospital Course Hospital Course: Patient was admitted and placed on the noted IV antibiotics. Surgical consultation was obtained, patient was taken to the OR and the wound was debrided appropriately and packed. The following morning on 07/17/17, nursing staff went to investigate and do typical morning rounds and patient had left AGAINST MEDICAL ADVICE. As a result of this action by the patient, no prescriptions, follow-up appointments or discharge physical examination was able to be obtained, unfortunately patient's prognosis is poor given his ongoing substance abuse and mental health problems. Objective Vital signs: Temp Pulse Resp BP Pulse Ox 97.7 F 108 H 18 144/81 99 07/16/17 20:00 07/16/17 20:00 07/16/17 20:00 07/16/17 20:00 07/16/17 20:30 Narrative: Unable to be performed on day of discharge DS: Diagnosis - Discharge Diagnosis (1) Abscess of right leg Status: Acute (2) Cellulitis of right lower extremity Status: Acute (3) IV drug abuse Status: Acute (4) Bipolar disorder Status: Acute (5) Hepatitis C Status: Acute (6) Leukocytosis Status: Acute (7) Dental caries Status: Chronic Discharge Plan - Patient Discharge Instructions - Follow up Plan Disposition: Left Against Medical Advice Home Medications: Home Medications Medication Instructions Recorded Confirmed Type No Known Home Medications 07/11/17 07/18/17 History Prescriptions/Medication Reconciliation: No Action No Known Home Medications
== END 2017-07-17 00:37 | disposition left against medical advice (07) ==
LOC: ER 17:35 → 2ND 17:35
PROVIDERS: ADMIT Internal Medicine Adolescent Medicine; ATTEND Internal Medicine Adolescent Medicine

== ENCOUNTER 2017-07-18 11:01 | Emergency (ER) | payer OTHER, SELFPAY ==
[2017-07-18 11:04] VITALS: BP 157/73; PULSE 104; RESP 22; TEMP 36.9; O2SAT 99; BMI 14.3
--- NOTE | 2017-07-18 11:59 | HMH.EDSKAF ---
ED Disposition Clinical Impression: Abscess of bursa, right ankle and foot, Methadone use, Status post incision and drainage, Sterile abscess at injection site Disposition: Home, Self-Care Condition on Discharge: Fair Instructions: DI for Skin Abscess Additional Instructions: 1-to return to the infusion clinic in the morning 07/19/17 at noon for wound dressing change. 2-no antibiotics until followed up by Dr. Avila in the morning. 3- follwo up with primary surgeon 07/22/17. 4- no more use of methadon. Referrals: Cherelle Bean MD [Primary Care Provider] - - Critical Care Critical Care Time: No Attestation: On 07/18/17, the high probability of a clinically significant, sudden or life threatening deterioration of the following system(s) required my full and direct attention, intervention and personal management. The time I documented below is in addition to time spent performing reported procedures but includes the following listed in this critical care notation. Medical Decision Making - [place] Inquiry Pt receiving controlled substance: No [place] was queried for this patient: No Vital Signs: 07/18/17 11:04 Temperature 98.4 F Temperature Source Oral Pulse Rate [Right Radial] 104 H Respiratory Rate 22 Blood Pressure [Right Arm] 157/73 Blood Pressure Mean [Right Arm] 101 Blood Pressure Source [Right Arm] Automatic Cuff Blood Pressure Position [Right Arm] Sitting 02 Sat by Pulse Oximetry 99 Oxygen Delivery Method Room Air Orders (Tests/Meds): ORDERS Category Date Time Status Ankle XR - Right 2 Views [XR ankle RT 2V] Stat Exams 07/18/17 12:14 Ordered Medical Decision Narrative: I spoke with the on-call surgeon Dr. Avila who will present to the ED for evaluation. Dr. Avila presented to the ED he examined the wounds and discussed with the patient future care, including additional debridement at a later time depends on the progress of the wound. With the wound culture is negative for organisms there is no antibiotics needed at the present time. The patient declined Toradol injection saying is not can help. He is out of his pain medication. He was scheduled for a wound care tomorrow at noon. The patient should follow-up with his primary surgeon on Saturday, July [address] Ronnie Hdez Skin/Abscess/FB HPI - General Chief complaint: Skin/Abscess/Foreign Body Stated complaint: Surgery 07/15/17; left AMA 07/16/17 pain in RT Leg Time Seen by Provider: 07/18/17 11:05 Mode of Arrival: Ambulatory Limitations: No Limitations Description of Symptoms (Recalled from ER Triage Doc. by RN): pain in right ankle leg. Had I&D tues and left ama. 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 He used to inject in a vein above the ankle. But the staff is telling me that this is a burn from making math he developed an abscess and was seen in the emergency room 4 days ago. He was admitted and consulted Dr. Hdez who drained the abscess but left AGAINST MEDICAL ADVICE. He returned to the ED concerned about losing his leg and complaining of pain. The patient is not currently on antibiotics. I checked in the wound culture and there was no organism growing up till now. MD complaint: abscess/boil Onset (ago): day(s) (4 days.) Tetanus up to date: unsure Location: RLE Severity: moderate Quality: constant Consistency: constant Relieving factors: other (touching. ) Exacerbating factors: movement, other (and touching. ) Treatments prior to arrival: bandages, other (I & D from a prior admission and left AMA. ) - Related Data Home Medications Medication Instructions Recorded Confirmed No Known Home Medications [No 07/11/17 07/18/17 Known Home Medications] Allergies Allergy/AdvReac Type Severity Reaction Status Date / Time No Known Allergies Allergy Verified 07/18/17 11:13 [facility] History I have reviewed the patient's past
--- NOTE | 2017-07-18 12:04 | ED_ITS ---
ED Disposition Clinical Impression: Abscess of bursa, right ankle and foot, Methadone use, Status post incision and drainage, Sterile abscess at injection site Disposition: Home, Self-Care Condition on Discharge: Fair Instructions: DI for Skin Abscess Additional Instructions: 1-to return to the infusion clinic in the morning 07/19/17 at noon for wound dressing change. 2-no antibiotics until followed up by Dr. Avila in the morning. 3- follwo up with primary surgeon 07/22/17. 4- no more use of methadon. Referrals: Cherelle Bean MD [Primary Care Provider] - - Critical Care Critical Care Time: No Attestation: On 07/18/17, the high probability of a clinically significant, sudden or life threatening deterioration of the following system(s) required my full and direct attention, intervention and personal management. The time I documented below is in addition to time spent performing reported procedures but includes the following listed in this critical care notation. Medical Decision Making - [place] Inquiry Pt receiving controlled substance: No [place] was queried for this patient: No Vital Signs: 07/18/17 11:04 Temperature 98.4 F Temperature Source Oral Pulse Rate [Right Radial] 104 H Respiratory Rate 22 Blood Pressure [Right Arm] 157/73 Blood Pressure Mean [Right Arm] 101 Blood Pressure Source [Right Arm] Automatic Cuff Blood Pressure Position [Right Arm] Sitting 02 Sat by Pulse Oximetry 99 Oxygen Delivery Method Room Air Orders (Tests/Meds): ORDERS Category Date Time Status Ankle XR - Right 2 Views [XR ankle RT 2V] Stat Exams 07/18/17 12:14 Ordered Medical Decision Narrative: I spoke with the on-call surgeon Dr. Avila who will present to the ED for evaluation. Dr. Avila presented to the ED he examined the wounds and discussed with the patient future care, including additional debridement at a later time depends on the progress of the wound. With the wound culture is negative for organisms there is no antibiotics needed at the present time. The patient declined Toradol injection saying is not can help. He is out of his pain medication. He was scheduled for a wound care tomorrow at noon. The patient should follow- up with his primary surgeon on Saturday, [address] Ronnie Hdez Skin/Abscess/FB HPI - General Chief complaint: Skin/Abscess/Foreign Body Stated complaint: Surgery 07/15/17; left AMA 07/16/17 pain in RT Leg Time Seen by Provider: 07/18/17 11:05 Mode of Arrival: Ambulatory Limitations: No Limitations Description of Symptoms (Recalled from ER Triage Doc. by RN): pain in right ankle leg. Had I&D tues and left ama. 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 He used to inject in a vein above the ankle. But the staff is telling me that this is a burn from making math he developed an abscess and was seen in the emergency room 4 days ago. He was admitted and consulted Dr. Hdez who drained the abscess but left AGAINST MEDICAL ADVICE. He returned to the ED concerned about losing his leg and complaining of pain. The patient is not currently on antibiotics. I checked in the wound culture and there was no organism growing up till now. complaint: abscess/boil Onset (ago): day(s) (4 days.) Tetanus up to date: unsure Location: RLE Severity: moderate Quality: constant Consistency: constant
--- NOTE | 2017-07-18 12:16 | PC.NURSE ---
dr sanchez on phone with dr muhammad at this time. asks dr muhammad to take a look at ankle. dr muhammad to come see pt.
--- NOTE | 2017-07-18 12:21 | PC.NURSE ---
Pt c/o pain from I&D site from previous admission. Unwrapped dsg and removed packing from wound. No foul smell or drainage from site. Repacked with wet to dry gauze and covered with padding. Dr Sonido Davis observed the open wound before being repacked. Pt did not tolerate well, having much anxiety while working with him. Very difficult instructing and educating patient due to his lack of attention and anxiety.
[2017-07-18 13:08] VITALS: BP 138/84; PULSE 93; RESP 22; TEMP 37.1; O2SAT 96
== END 2017-07-18 13:09 | disposition home or self-care (01) ==
PROVIDERS: Emergency Provider Emergency Medicine; PCP Family Medicine
DX: T88.8XXA Other specified complications of surgical and medical care, not elsewhere classified, initial encounter; M71.071 Abscess of bursa, right ankle and foot; F11.20 Opioid dependence, uncomplicated; F17.210 Nicotine dependence, cigarettes, uncomplicated; Z79.899 Other long term (current) drug therapy
CPT/HCPCS: 99281

== ENCOUNTER 2017-07-19 13:03 | Outpatient (CLI) | payer OTHER, SELFPAY | END 2017-07-19 14:00 | disposition home or self-care (01) | LOC: INF 13:06 | PROVIDERS: Visit Provider Surgery | DX: L02.415 Cutaneous abscess of right lower limb (principal); L03.115 Cellulitis of right lower limb; Z48.01 Encounter for change or removal of surgical wound dressing | CPT/HCPCS: G0463 ==